=== PATIENT | female | born 1955 | race Two or more races ===

== ENCOUNTER 2021-01-11 14:16 | Inpatient (IN) | payer MEDICARE ==
[~2021-01-11] VITALS: Ht 167.6 cm; Wt 88.9 kg
[2021-01-11] MEDS ORDERED: SODIUM CHLORIDE 0.9% 1000ML BAG (SEPSIS BOLUS) IV ONE (14:45)
[2021-01-11 15:22] LABS: BASOPHILS % 0.9 % (0.0-2.0); EOSINOPHILS % 0.9 % (0.0-5.0); HEMOGLOBIN. 12.7 g/dL (12.0-16.0); LYMPHOCYTES % 16.9 % (20.0-50.0); MEAN CORPUSCULAR HEMOGLOBIN 29.2 pg (28.0-32.0); MONOCYTES % 14.2 % (2.0-8.0); NEUTROPHILS % 67.1 % (40.0-76.0); PLATELET 191 x1000/uL (130-400); RED BLOOD CELL COUNT 4.35 mill/uL (4.2-5.4)
[2021-01-11 15:27] LABS: CHLORIDE 111 mEq/L (98-107)
[2021-01-11 15:33] LABS: C REACTIVE PROTEIN QUANT 1.2 mg/L (0.0-3.0)
[2021-01-11 16:03] LABS: INR 8.9
[2021-01-11] MEDS ORDERED: CLONIDINE 0.1MG TABLET PO PRN (18:15)
[2021-01-11] MEDS ORDERED: ACETAMINOPHEN 325MG TABLET PO PRN ×2 (18:15)
[2021-01-11] MEDS ORDERED: NITROGLYCERIN 0.4MG TABLET SL SL PRN (18:15)
[2021-01-11] MEDS ORDERED: POTASSIUM CHLORIDE 20MEQ TABLET SR PO NR (18:15)
[2021-01-11] MEDS ORDERED: MAGNESIUM/ALUMINUM HYDROXIDE/SIMETHICONE 30ML UDC PO PRN (18:15)
[2021-01-11] MEDS ORDERED: DOCUSATE SODIUM 100MG CAPSULE PO PRN (18:15)
[2021-01-11] MEDS ORDERED: GUAIFENESIN 200MG/10ML SUGAR FREE UDC PO PRN (18:15)
[2021-01-11] MEDS ORDERED: ONDANSETRON HCL 4MG/2ML INJ IV PRN (18:15)
[2021-01-11] MEDS ORDERED: IPRATROPIUM/ALBUTEROL 0.5-3(2.5)MG/3ML NEB NEB PRN (18:15)
[2021-01-11] MEDS: FAMOTIDINE 20MG TABLET PO SCH (18:59)
[2021-01-11 20:10] LABS: ETHANOL BLOOD < 10 mg/dL
[2021-01-11 20:12] LABS: TOTAL IRON BINDING CAPACITY 253 ug/dL (250-450)
[2021-01-11 20:14] LABS: LDL CHOLESTEROL 80 mg/dL (5-100)
[2021-01-11 20:15] LABS: HDL CHOLESTEROL 44 mg/dL (40-59); T4 FREE 2.02 ng/dL (0.76-1.46)
[2021-01-11 20:23] LABS: FOLIC ACID (FOLATE) SERUM 19.7 ng/mL (>5.38)
[2021-01-11] MEDS ORDERED: DEXTROSE 50% WATER 50ML SYRINGE IV PRN (20:45)
[2021-01-11] MEDS: BLOOD SUGAR DIAGNOSTIC STRIP TEST SCH (21:00)
[2021-01-11] MEDS: INSULIN LISPRO 100 UNITS/ML SUBCUT SCH (21:00)
[2021-01-11] MEDS ORDERED: PHYTONADIONE 10MG/ML AMP SUBCUT NR (21:00)
[2021-01-12] VITALS (7 sets, daily range): BP systolic 127–157; BP diastolic 68–91
[2021-01-12] MEDS: ASCORBIC ACID 500 MG TABLET PO SCH ×3 (02:00→22:22)
[2021-01-12 05:28] LABS: CLARITY URINE CLEAR (CLEAR); COLOR URINE YELLOW (YELLOW); KETONES URINE NEGATIVE (NEGATIVE); LEUKOCYTE ESTERASE URINE NEGATIVE (NEGATIVE); NITRITE URINE NEGATIVE (NEGATIVE); OCCULT BLOOD URINE NEGATIVE (NEGATIVE); PROTEIN URINE NEGATIVE (NEGATIVE); UROBILINOGEN URINE 0.2 E.U./dL (0.2-1.0)
[2021-01-12 05:43] LABS: *AMPHETAMINES SCREEN URINE NEGATIVE (NEGATIVE); *BARBITURATES SCREEN URINE NEGATIVE (NEGATIVE); *BENZODIAZEPINES SCREEN URINE NEGATIVE (NEGATIVE); *COCAINE SCREEN URINE NEGATIVE (NEGATIVE); METHADONE URINE SCREEN NEGATIVE (NEGATIVE); OPIATES URINE SCREEN NEGATIVE (NEGATIVE)
[2021-01-12 05:44] LABS: CANNABINOID URINE SCREEN NEGATIVE (NEGATIVE); PHENCYCLIDINE URINE SCREEN NEGATIVE (NEGATIVE)
[2021-01-12] MEDS: BLOOD SUGAR DIAGNOSTIC STRIP TEST SCH ×4 (06:33→21:00)
[2021-01-12] MEDS: INSULIN LISPRO 100 UNITS/ML SUBCUT SCH ×4 (06:33→21:00)
[2021-01-12 07:51] LABS: CHLORIDE 112 mEq/L (98-107)
[2021-01-12 07:56] LABS: PROTHROMBIN TIME 86.2 sec (9.6-11.0)
[2021-01-12 07:58] LABS: PHOSPHORUS 2.8 mg/dL (2.5-4.9)
[2021-01-12 08:00] LABS: CREATINE KINASE 204 IU/L (26-192); CREATINE KINASE MB FRACTION 6.5 ng/mL (0.5-3.6)
[2021-01-12 08:24] LABS: INR 9.6
[2021-01-12] MEDS: ASPIRIN 81MG EC TABLET PO SCH (09:07)
[2021-01-12] MEDS: FAMOTIDINE 20MG TABLET PO SCH (09:08)
[2021-01-12] MEDS: CHOLECALCIFEROL (D3) 1000 UNIT TABLET PO SCH (09:08)
[2021-01-12] MEDS: ZINC SULFATE 220 MG ( 50 ) CAPSULE PO SCH (09:08)
[2021-01-12] MEDS ORDERED: PHYTONADIONE 5 MG/5ML ORAL SYRINGE PO NR (11:00)
[2021-01-12 17:28] LABS: HEMOGLOBIN. 12.9 g/dL (12.0-16.0); MEAN CORPUSCULAR HEMOGLOBIN 28.6 pg (28.0-32.0); MEAN CORPUSCULAR VOLUME 86.5 fL (81.0-99.0); MEAN PLATELET VOLUME 9.4 fl (7.4-10.4); PLATELET 202 x1000/uL (130-400); RED CELL DISTRIBUTION WIDTH 17.3 % (11.6-14.6)
[2021-01-12 17:52] LABS: CREATINE KINASE MB FRACTION 6.1 ng/mL (0.5-3.6)
[2021-01-12 18:14] LABS: PLATELET ESTIMATE NORMAL
[2021-01-13] VITALS: BP 142/74
[2021-01-13 04:18] VITALS: BP 146/73
[2021-01-13] MEDS: BLOOD SUGAR DIAGNOSTIC STRIP TEST SCH ×4 (06:18→21:00)
[2021-01-13] MEDS: INSULIN LISPRO 100 UNITS/ML SUBCUT SCH ×4 (06:19→21:00)
[2021-01-13 06:22] LABS: PROTHROMBIN TIME 20.8 sec (9.6-11.0)
[2021-01-13 08:00] VITALS: BP 158/86
[2021-01-13] MEDS: FAMOTIDINE 20MG TABLET PO SCH (08:52)
[2021-01-13] MEDS: ASPIRIN 81MG EC TABLET PO SCH (08:52)
[2021-01-13] MEDS: CHOLECALCIFEROL (D3) 1000 UNIT TABLET PO SCH (08:52)
[2021-01-13] MEDS: ZINC SULFATE 220 MG ( 50 ) CAPSULE PO SCH (08:52)
[2021-01-13] MEDS: ASCORBIC ACID 500 MG TABLET PO SCH ×2 (08:52→22:32)
[2021-01-13 12:00] VITALS: BP 155/84
[2021-01-13] MEDS ORDERED: DILTIAZEM HCL 5MG/ML 5ML VIAL IV SCH (13:45)
[2021-01-13 16:00] VITALS: BP 101/72
[2021-01-13] MEDS: DILTIAZEM HCL 60MG TABLET PO SCH ×2 (17:30→17:56)
[2021-01-13] MEDS ORDERED: DILTIAZEM HCL 60MG TABLET PO SCH (18:00)
[2021-01-13] MEDS ORDERED: WARFARIN SODIUM 2.5MG TABLET PO NR (18:00)
[2021-01-13] MEDS: ZOLPIDEM TARTRATE 5MG TABLET PO PRN (18:39)
[2021-01-13 20:00] VITALS: BP 129/63
[2021-01-14] VITALS: BP 147/75
[2021-01-14] MEDS: DILTIAZEM HCL 60MG TABLET PO SCH ×3 (00:23→12:49)
[2021-01-14 04:00] VITALS: BP 159/79
[2021-01-14] MEDS: BLOOD SUGAR DIAGNOSTIC STRIP TEST SCH ×4 (06:14→21:56)
[2021-01-14] MEDS: INSULIN LISPRO 100 UNITS/ML SUBCUT SCH ×4 (06:24→21:57)
[2021-01-14 08:00] VITALS: BP 114/73
[2021-01-14] MEDS: ZINC SULFATE 220 MG ( 50 ) CAPSULE PO SCH (09:21)
[2021-01-14] MEDS: ASPIRIN 81MG EC TABLET PO SCH (09:21)
[2021-01-14] MEDS: CHOLECALCIFEROL (D3) 1000 UNIT TABLET PO SCH (09:21)
[2021-01-14] MEDS: ASCORBIC ACID 500 MG TABLET PO SCH ×2 (09:21→21:56)
[2021-01-14] MEDS: FAMOTIDINE 20MG TABLET PO SCH (09:21)
[2021-01-14 12:00] VITALS: BP 178/93
[2021-01-14 16:00] VITALS: BP 121/79
[2021-01-14 16:10] LABS: INR 1.3; PROTHROMBIN TIME 13.3 sec (9.6-11.0)
[2021-01-14] MEDS ORDERED: DIGOXIN 500MCG/2ML AMP IV NR (16:30)
[2021-01-14] MEDS ORDERED: WARFARIN SODIUM 5MG TABLET PO NR (18:00)
[2021-01-14] MEDS: DILTIAZEM HCL 90MG TABLET PO SCH (18:11)
[2021-01-14 20:00] VITALS: BP 135/75
[2021-01-15] VITALS: BP 172/92
[2021-01-15] MEDS: DILTIAZEM HCL 90MG TABLET PO SCH ×4 (00:51→17:19)
[2021-01-15] MEDS: ZOLPIDEM TARTRATE 5MG TABLET PO PRN (01:45)
[2021-01-15 04:00] VITALS: BP 145/79
[2021-01-15] MEDS: BLOOD SUGAR DIAGNOSTIC STRIP TEST SCH ×4 (06:51→21:00)
[2021-01-15] MEDS: INSULIN LISPRO 100 UNITS/ML SUBCUT SCH ×4 (06:53→23:52)
[2021-01-15 08:00] VITALS: BP 139/66
[2021-01-15 08:04] LABS: INR 1.2; PROTHROMBIN TIME 12.6 sec (9.6-11.0)
[2021-01-15] MEDS: ZINC SULFATE 220 MG ( 50 ) CAPSULE PO SCH (09:26)
[2021-01-15] MEDS: ASPIRIN 81MG EC TABLET PO SCH (09:26)
[2021-01-15] MEDS: FAMOTIDINE 20MG TABLET PO SCH (09:26)
[2021-01-15] MEDS: CHOLECALCIFEROL (D3) 1000 UNIT TABLET PO SCH (09:26)
[2021-01-15] MEDS: ASCORBIC ACID 500 MG TABLET PO SCH ×2 (09:26→23:01)
[2021-01-15] MEDS: AMIODARONE HCL 200 MG TABLET PO SCH ×2 (11:56→23:01)
[2021-01-15 12:00] VITALS: BP 149/89
[2021-01-15 16:00] VITALS: BP 128/57
[2021-01-15] MEDS ORDERED: WARFARIN SODIUM 5MG TABLET PO NR (18:00)
[2021-01-15 20:00] VITALS: BP 137/85
[2021-01-16] VITALS: BP 166/85
[2021-01-16] MEDS: DILTIAZEM HCL 90MG TABLET PO SCH ×3 (01:01→12:21)
[2021-01-16] MEDS: BLOOD SUGAR DIAGNOSTIC STRIP TEST SCH ×2 (06:40→11:56)
[2021-01-16] MEDS: INSULIN LISPRO 100 UNITS/ML SUBCUT SCH ×2 (07:10→12:23)
[2021-01-16] MEDS: CHOLECALCIFEROL (D3) 1000 UNIT TABLET PO SCH (09:23)
[2021-01-16] MEDS: FAMOTIDINE 20MG TABLET PO SCH (09:23)
[2021-01-16] MEDS: ZINC SULFATE 220 MG ( 50 ) CAPSULE PO SCH (09:23)
[2021-01-16] MEDS: ASCORBIC ACID 500 MG TABLET PO SCH (09:23)
[2021-01-16] MEDS: AMIODARONE HCL 200 MG TABLET PO SCH (09:30)
[2021-01-16] MEDS ORDERED: APIXABAN 5 MG TABLET PO SCH ×2 (10:00→18:00)
[2021-01-16] MEDS: ASPIRIN 81MG EC TABLET PO SCH (10:52)
[2021-01-16 12:00] VITALS: BP 172/69
[2021-01-16 14:10] VITALS: BP 146/70
== END 2021-01-16 15:15 | disposition home or self-care (01) | DRG 91 ==
LOC: ER 14:16 → EDBEDREQ 16:50 → EDBEDREQSVC 16:50 → EDBEDREQTM 16:50 → MICUSO 17:39 → EDBEDREQTM 17:44 → EDBEDREQ 17:44 → 7WST 21:12 → 7EST 23:40
PROVIDERS: ADMIT Internal Medicine; ATTEND Internal Medicine
DX: G92 Toxic encephalopathy (principal); I50.33 Acute on chronic diastolic (congestive) heart failure; E43 Unspecified severe protein-calorie malnutrition; D68.9 Coagulation defect, unspecified; I48.19 Other persistent atrial fibrillation; N17.9 Acute kidney failure, unspecified; I95.9 Hypotension, unspecified; I11.0 Hypertensive heart disease with heart failure; E66.9 Obesity, unspecified; E78.00 Pure hypercholesterolemia, unspecified; E83.51 Hypocalcemia; E87.6 Hypokalemia; S91.012A Laceration without foreign body, left ankle, initial encounter; E11.9 Type 2 diabetes mellitus without complications; Z78.9 Other specified health status; Z79.01 Long term (current) use of anticoagulants; Z85.72 Personal history of non-Hodgkin lymphomas; Z86.73 Personal history of transient ischemic attack (TIA), and cerebral infarction without residual deficits; X58.XXXA Exposure to other specified factors, initial encounter; Y93.89 Activity, other specified; Y92.89 Other specified places as the place of occurrence of the external cause; Y99.8 Other external cause status; Z68.31 Body mass index [BMI] 31.0-31.9, adult; Z20.822 Contact with and (suspected) exposure to COVID-19
CPT/HCPCS: 36415; 70551; 71045; 80053; 80061; 80305; 80320; 81003; 82140; 82550; 82553; 82607; 82728; 82746; 82962; 83036; 83540; 83550; 83605; 83615; 83735; 84100; 84145; 84439; 84443; 84484; 85025; 85379; 85384; 86140; 86850; 86900; 87426; 93005; 93306; 93970; 97162; 99285; J1160; J1815; J3430; J3490; J7030; U0003; U0005; G0480

== ENCOUNTER 2021-02-17 18:08 | Inpatient (IN) | payer MEDICARE, MEDICAID ==
[~2021-02-17] VITALS: Ht 162.6 cm; Wt 89.4 kg
[2021-02-17] MEDS ORDERED: SODIUM CHLORIDE 0.9% 500 ML IV ONE (19:00)
[2021-02-17 21:41] LABS: CHLORIDE 110 mEq/L (98-107)
[2021-02-17 21:42] LABS: BASOPHILS % 0.7 % (0.0-2.0); EOSINOPHILS % 1.1 % (0.0-5.0); HEMATOCRIT. 44.1 % (36.0-48.0); HEMOGLOBIN. 13.9 g/dL (12.0-16.0); LYMPHOCYTES % 16.9 % (20.0-50.0); MEAN CORPUSCULAR HEMOGLOBIN 29.1 pg (28.0-32.0); MEAN CORPUSCULAR VOLUME 92.4 fL (81.0-99.0); MONOCYTES % 10.5 % (2.0-8.0); NEUTROPHILS % 70.8 % (40.0-76.0); PLATELET 145 x1000/uL (130-400); RED BLOOD CELL COUNT 4.78 mill/uL (4.2-5.4); RED CELL DISTRIBUTION WIDTH 18.5 % (11.6-14.6)
[2021-02-17] MEDS ORDERED: ASPIRIN 81MG TABLET PO NR (22:00)
[2021-02-18] VITALS (10 sets, daily range): BP systolic 118–177; BP diastolic 61–100
[2021-02-18] MEDS ORDERED: DEXTROSE 50% WATER 50ML SYRINGE IV PRN (05:15)
[2021-02-18] MEDS: BLOOD SUGAR DIAGNOSTIC STRIP TEST SCH ×4 (07:30→20:23)
[2021-02-18] MEDS ORDERED: PNEUMOCOCCAL 23-VAL P-SAC VAC 0.5 ML IM ONE (08:00)
[2021-02-18] MEDS: INSULIN LISPRO 100 UNITS/ML SUBCUT SCH ×4 (09:41→20:31)
[2021-02-18 09:57] LABS: CREATINE KINASE MB FRACTION 5.3 ng/mL (0.5-3.6)
[2021-02-18] MEDS ORDERED: INFLUENZA VACCINE 05/PF 0.5 ML SYRINGE IM ONE (10:00)
[2021-02-18] MEDS: ASPIRIN 81MG TABLET PO SCH (10:29)
[2021-02-18] MEDS ORDERED: IPRATROPIUM/ALBUTEROL 0.5-3(2.5)MG/3ML NEB HHN PRN (13:30)
[2021-02-18] MEDS ORDERED: ACETAMINOPHEN 325MG TABLET PO PRN (13:30)
[2021-02-18] MEDS ORDERED: DOCUSATE SODIUM 100MG CAPSULE PO PRN (13:30)
[2021-02-18] MEDS ORDERED: ONDANSETRON HCL 4MG/2ML INJ IV PRN (13:30)
[2021-02-18 13:49] LABS: BG CARBOXYHEMOGLOBIN 0.6 % (0.5-1.5); BG DEOXYHEMOGLOBIN 2.2 % (0.0-5.0); BG FRACTION INSPIRED OXYGEN 21; BG HCO3 ACT 27.1 mmol/L (22.0-26.0); BG METHEMOGLOBIN 0.3 % (0.0-1.5); BG OXYGEN SATURATION 97.8 % (92.0-98.5); BG OXYHEMOGLOBIN 96.9 % (94.0-97.0); BG PCO2 35.5 mmHg (35.0-45.0); BG PO2 100.5 mmHg (75.0-100.0); BG SAMPLE SITE LEFT BRACHIAL; BG VENT MODE ROOM AIR
[2021-02-18] MEDS: SODIUM CHLORIDE 0.45% 1,000 ML IV SCH (14:05)
[2021-02-18 16:20] LABS: T4 FREE 1.45 ng/dL (0.76-1.46)
[2021-02-18 16:30] LABS: HEPATITIS B SURFACE ANTIGEN NEGATIVE
[2021-02-18] MEDS: CLONIDINE 0.1MG TABLET PO PRN (17:21)
[2021-02-18] MEDS ORDERED: LORAZEPAM 2MG/ML CPJ IV NR (18:30)
[2021-02-18 21:43] LABS: INR 1.1; PROTHROMBIN TIME 11.9 sec (9.6-11.0)
[2021-02-19] VITALS (9 sets, daily range): BP systolic 128–193; BP diastolic 62–100
[2021-02-19 05:28] LABS: HEMATOCRIT. 36.4 % (36.0-48.0); HEMOGLOBIN. 12.2 g/dL (12.0-16.0); MEAN CORPUSCULAR HEMOGLOBIN 29.3 pg (28.0-32.0); MEAN CORPUSCULAR VOLUME 87.5 fL (81.0-99.0); MEAN PLATELET VOLUME 10.1 fl (7.4-10.4); PLATELET 147 x1000/uL (130-400); RED BLOOD CELL COUNT 4.16 mill/uL (4.2-5.4); RED CELL DISTRIBUTION WIDTH 17.9 % (11.6-14.6)
[2021-02-19] MEDS: SODIUM CHLORIDE 0.45% 1,000 ML IV SCH ×3 (06:15→21:40)
[2021-02-19] MEDS: BLOOD SUGAR DIAGNOSTIC STRIP TEST SCH ×4 (07:30→21:15)
[2021-02-19] MEDS: INSULIN LISPRO 100 UNITS/ML SUBCUT SCH ×4 (08:00→21:00)
[2021-02-19 08:31] LABS: PLATELET ESTIMATE NORMAL
[2021-02-19] MEDS: CLONIDINE 0.1MG TABLET PO PRN (08:50)
[2021-02-19] MEDS: ASPIRIN 81MG TABLET PO SCH (08:50)
[2021-02-19] MEDS: ACETAMINOPHEN 325MG TABLET PO PRN ×2 (08:51→17:54)
[2021-02-19] MEDS ORDERED: POTASSIUM CHLORIDE 20MEQ TABLET SR PO SCH (09:00)
[2021-02-19] MEDS ORDERED: LORAZEPAM 2MG/ML CPJ IV PRN (09:15)
[2021-02-19] MEDS: AMLODIPINE 5MG TABLET PO SCH (09:31)
[2021-02-19] MEDS: HYDRALAZINE 20MG/ML VIAL IV PRN (09:31)
[2021-02-19 11:57] LABS: CREATINE KINASE 327 IU/L (26-192)
[2021-02-19] MEDS: HYDRALAZINE HCL 25MG TABLET PO SCH ×2 (17:44→22:48)
[2021-02-19] MEDS: ENOXAPARIN 80MG/0.8ML SYR SUBCUT SCH (17:45)
[2021-02-20] VITALS (8 sets, daily range): BP systolic 110–189; BP diastolic 56–110
[2021-02-20] MEDS: ENOXAPARIN 80MG/0.8ML SYR SUBCUT SCH ×2 (05:26→18:39)
[2021-02-20] MEDS: HYDRALAZINE HCL 25MG TABLET PO SCH ×3 (05:27→22:00)
[2021-02-20] MEDS: SODIUM CHLORIDE 0.45% 1,000 ML IV SCH ×2 (05:28→18:40)
[2021-02-20] MEDS: BLOOD SUGAR DIAGNOSTIC STRIP TEST SCH ×4 (07:30→20:23)
[2021-02-20] MEDS: INSULIN LISPRO 100 UNITS/ML SUBCUT SCH ×4 (08:00→20:44)
[2021-02-20 08:14] LABS: HEMATOCRIT. 37.1 % (36.0-48.0); HEMOGLOBIN. 12.3 g/dL (12.0-16.0); MEAN CORPUSCULAR HEMOGLOBIN 29.2 pg (28.0-32.0); MEAN CORPUSCULAR VOLUME 88.3 fL (81.0-99.0); MEAN PLATELET VOLUME 9.8 fl (7.4-10.4); PLATELET 169 x1000/uL (130-400); RED CELL DISTRIBUTION WIDTH 17.9 % (11.6-14.6)
[2021-02-20 09:07] LABS: VITAMIN B12 SERUM 625 pg/mL (211-911)
[2021-02-20] MEDS: AMLODIPINE 5MG TABLET PO SCH (09:22)
[2021-02-20] MEDS: ASPIRIN 81MG TABLET PO SCH (09:22)
[2021-02-20] MEDS ORDERED: POTASSIUM CHLORIDE INJ 40 MEQ in DEXT 5% WATER 250 ML IV ONE (12:30)
[2021-02-20 18:03] LABS: PLATELET ESTIMATE NORMAL
[2021-02-21] VITALS (8 sets, daily range): BP systolic 104–173; BP diastolic 55–100
[2021-02-21] MEDS: SODIUM CHLORIDE 0.45% 1,000 ML IV SCH ×3 (05:00→21:54)
[2021-02-21] MEDS: HYDRALAZINE 20MG/ML VIAL IV PRN ×2 (05:15→21:39)
[2021-02-21] MEDS: HYDRALAZINE HCL 25MG TABLET PO SCH ×3 (05:15→21:54)
[2021-02-21] MEDS: ENOXAPARIN 80MG/0.8ML SYR SUBCUT SCH (05:17)
[2021-02-21] MEDS: BLOOD SUGAR DIAGNOSTIC STRIP TEST SCH ×4 (07:30→21:54)
[2021-02-21] MEDS: INSULIN LISPRO 100 UNITS/ML SUBCUT SCH ×4 (08:00→21:00)
[2021-02-21] MEDS: AMLODIPINE 5MG TABLET PO SCH (08:52)
[2021-02-21] MEDS: ASPIRIN 81MG TABLET PO SCH (08:52)
[2021-02-21 09:12] LABS: BASOPHILS % 1.2 % (0.0-2.0); EOSINOPHILS % 2.3 % (0.0-5.0); HEMATOCRIT. 41.1 % (36.0-48.0); HEMOGLOBIN. 13.1 g/dL (12.0-16.0); LYMPHOCYTES % 23.8 % (20.0-50.0); MEAN CORPUSCULAR HEMOGLOBIN 28.9 pg (28.0-32.0); MEAN CORPUSCULAR VOLUME 90.2 fL (81.0-99.0); MEAN PLATELET VOLUME 9.9 fl (7.4-10.4); MONOCYTES % 13.9 % (2.0-8.0); NEUTROPHILS % 58.8 % (40.0-76.0); PLATELET 162 x1000/uL (130-400); RED BLOOD CELL COUNT 4.55 mill/uL (4.2-5.4); RED CELL DISTRIBUTION WIDTH 17.7 % (11.6-14.6)
[2021-02-21 09:24] LABS: PHOSPHORUS 2.6 mg/dL (2.5-4.9)
[2021-02-21] MEDS ORDERED: POTASSIUM CHLORIDE 20MEQ/PACKET PO NR (10:30)
[2021-02-21] MEDS: ENOXAPARIN 100MG/ML SYR SUBCUT SCH (21:38)
[2021-02-22] VITALS (8 sets, daily range): BP systolic 119–171; BP diastolic 64–98
[2021-02-22] MEDS: HYDRALAZINE HCL 25MG TABLET PO SCH ×3 (05:44→22:38)
[2021-02-22] MEDS: HYDRALAZINE 20MG/ML VIAL IV PRN ×2 (06:38→13:03)
[2021-02-22] MEDS: BLOOD SUGAR DIAGNOSTIC STRIP TEST SCH ×4 (07:30→21:15)
[2021-02-22] MEDS: INSULIN LISPRO 100 UNITS/ML SUBCUT SCH ×4 (08:00→21:00)
[2021-02-22] MEDS: AMLODIPINE 5MG TABLET PO SCH (09:19)
[2021-02-22] MEDS: ENOXAPARIN 100MG/ML SYR SUBCUT SCH ×2 (09:19→21:15)
[2021-02-22] MEDS: ASPIRIN 81MG TABLET PO SCH (09:19)
[2021-02-22] MEDS: SODIUM CHLORIDE 0.45% 1,000 ML IV SCH (09:32)
[2021-02-22 09:34] LABS: BASOPHILS % 0.9 % (0.0-2.0); EOSINOPHILS % 2.1 % (0.0-5.0); HEMOGLOBIN. 12.7 g/dL (12.0-16.0); LYMPHOCYTES % 19.2 % (20.0-50.0); MEAN CORPUSCULAR HEMOGLOBIN 29.9 pg (28.0-32.0); MEAN CORPUSCULAR VOLUME 89.6 fL (81.0-99.0); MEAN PLATELET VOLUME 9.7 fl (7.4-10.4); MONOCYTES % 12.6 % (2.0-8.0); NEUTROPHILS % 65.2 % (40.0-76.0); PLATELET 164 x1000/uL (130-400); RED BLOOD CELL COUNT 4.24 mill/uL (4.2-5.4); RED CELL DISTRIBUTION WIDTH 17.7 % (11.6-14.6)
[2021-02-22 09:44] LABS: PHOSPHORUS 2.9 mg/dL (2.5-4.9)
[2021-02-22] MEDS ORDERED: POTASSIUM CHLORIDE 20MEQ/PACKET PO NR (11:00)
[2021-02-23] VITALS: BP 150/84
[2021-02-23 04:00] VITALS: BP 166/81
[2021-02-23] MEDS: HYDRALAZINE HCL 25MG TABLET PO SCH ×3 (06:32→22:03)
[2021-02-23] MEDS: BLOOD SUGAR DIAGNOSTIC STRIP TEST SCH ×4 (07:30→21:00)
[2021-02-23 08:00] VITALS: BP 143/58
[2021-02-23] MEDS: INSULIN LISPRO 100 UNITS/ML SUBCUT SCH ×4 (08:00→21:00)
[2021-02-23 08:07] LABS: BASOPHILS % 0.7 % (0.0-2.0); EOSINOPHILS % 2.1 % (0.0-5.0); HEMATOCRIT. 38.3 % (36.0-48.0); HEMOGLOBIN. 12.5 g/dL (12.0-16.0); LYMPHOCYTES % 18.8 % (20.0-50.0); MEAN CORPUSCULAR HEMOGLOBIN 28.9 pg (28.0-32.0); MEAN CORPUSCULAR VOLUME 88.3 fL (81.0-99.0); MEAN PLATELET VOLUME 9.9 fl (7.4-10.4); MONOCYTES % 13.3 % (2.0-8.0); NEUTROPHILS % 65.1 % (40.0-76.0); PLATELET 176 x1000/uL (130-400); RED BLOOD CELL COUNT 4.34 mill/uL (4.2-5.4); RED CELL DISTRIBUTION WIDTH 17.1 % (11.6-14.6)
[2021-02-23] MEDS: ASPIRIN 81MG TABLET PO SCH (08:44)
[2021-02-23] MEDS: ENOXAPARIN 100MG/ML SYR SUBCUT SCH ×2 (08:44→21:00)
[2021-02-23] MEDS: AMLODIPINE 5MG TABLET PO SCH (08:45)
[2021-02-23] MEDS ORDERED: POTASSIUM CHLORIDE 20MEQ/PACKET PO NR (11:15)
[2021-02-23 12:00] VITALS: BP 101/75
[2021-02-23 16:00] VITALS: BP 133/78
[2021-02-23] MEDS: HYDRALAZINE 20MG/ML VIAL IV PRN (16:23)
[2021-02-23] MEDS: DEXT 5%/0.9% NACL 1,000 ML IV SCH ×2 (19:01→19:05)
[2021-02-23 20:00] VITALS: BP 101/42
[2021-02-23] MEDS: MEMANTINE HCL 5MG TABLET PO SCH (22:04)
[2021-02-24] VITALS (8 sets, daily range): BP systolic 116–161; BP diastolic 52–98
[2021-02-24] MEDS: HYDRALAZINE HCL 25MG TABLET PO SCH ×2 (06:47→15:42)
[2021-02-24] MEDS: BLOOD SUGAR DIAGNOSTIC STRIP TEST SCH ×4 (07:30→21:00)
[2021-02-24] MEDS: INSULIN LISPRO 100 UNITS/ML SUBCUT SCH ×4 (08:00→21:00)
[2021-02-24] MEDS: ASPIRIN 81MG TABLET PO SCH (10:16)
[2021-02-24] MEDS: MEMANTINE HCL 5MG TABLET PO SCH ×2 (10:16→22:39)
[2021-02-24] MEDS: AMLODIPINE 5MG TABLET PO SCH (10:17)
[2021-02-24] MEDS: ENOXAPARIN 100MG/ML SYR SUBCUT SCH ×2 (10:18→22:41)
[2021-02-24 12:16] LABS: BASOPHILS % 0.5 % (0.0-2.0); HEMATOCRIT. 38.6 % (36.0-48.0); HEMOGLOBIN. 13.1 g/dL (12.0-16.0); LYMPHOCYTES % 16.8 % (20.0-50.0); MEAN CORPUSCULAR HEMOGLOBIN 30.3 pg (28.0-32.0); MEAN PLATELET VOLUME 9.6 fl (7.4-10.4); MONOCYTES % 12.9 % (2.0-8.0); NEUTROPHILS % 68.8 % (40.0-76.0); PLATELET 183 x1000/uL (130-400); RED BLOOD CELL COUNT 4.34 mill/uL (4.2-5.4); RED CELL DISTRIBUTION WIDTH 17.3 % (11.6-14.6)
[2021-02-24 12:31] LABS: PHOSPHORUS 3.3 mg/dL (2.5-4.9)
[2021-02-24] MEDS ORDERED: DILTIAZEM HCL 5MG/ML 5ML VIAL IV PRN ×2 (16:30→19:00)
[2021-02-24] MEDS ORDERED: DILTIAZEM HCL 5MG/ML 5ML VIAL IV NR (16:30)
[2021-02-24] MEDS: DILTIAZEM HCL 60MG TABLET PO SCH ×2 (16:32→22:39)
[2021-02-25] VITALS: BP 160/90
[2021-02-25 03:40] VITALS: BP 144/73
[2021-02-25] MEDS: DILTIAZEM HCL 60MG TABLET PO SCH (06:34)
[2021-02-25 08:00] VITALS: BP 163/94
[2021-02-25] MEDS: INSULIN LISPRO 100 UNITS/ML SUBCUT SCH ×4 (08:00→21:00)
[2021-02-25] MEDS: BLOOD SUGAR DIAGNOSTIC STRIP TEST SCH ×4 (08:11→21:00)
[2021-02-25 08:30] LABS: BASOPHILS % 0.8 % (0.0-2.0); EOSINOPHILS % 2.2 % (0.0-5.0); HEMATOCRIT. 36.9 % (36.0-48.0); HEMOGLOBIN. 12.3 g/dL (12.0-16.0); LYMPHOCYTES % 18.1 % (20.0-50.0); MEAN CORPUSCULAR HEMOGLOBIN 29.6 pg (28.0-32.0); MEAN CORPUSCULAR VOLUME 88.7 fL (81.0-99.0); MEAN PLATELET VOLUME 10.4 fl (7.4-10.4); NEUTROPHILS % 64.9 % (40.0-76.0); PLATELET 170 x1000/uL (130-400); RED BLOOD CELL COUNT 4.16 mill/uL (4.2-5.4); RED CELL DISTRIBUTION WIDTH 17.1 % (11.6-14.6)
[2021-02-25] MEDS: MEMANTINE HCL 5MG TABLET PO SCH ×2 (09:11→22:25)
[2021-02-25] MEDS: ASPIRIN 81MG TABLET PO SCH (09:11)
[2021-02-25] MEDS: ENOXAPARIN 100MG/ML SYR SUBCUT SCH ×2 (09:11→22:26)
[2021-02-25] MEDS: AMLODIPINE 5MG TABLET PO SCH (09:11)
[2021-02-25 12:00] VITALS: BP 143/85
[2021-02-25] MEDS ORDERED: POTASSIUM CHLORIDE 20MEQ TABLET SR PO NR (12:15)
[2021-02-25] MEDS: SODIUM CHLORIDE 0.45% 1,000 ML IV SCH (13:19)
[2021-02-25] MEDS: DILTIAZEM HCL 90MG TABLET PO SCH ×2 (14:21→22:42)
[2021-02-25] MEDS ORDERED: ASPI-1160 PO (14:30)
[2021-02-25] MEDS ORDERED: DILT90TA2 PO (14:30)
[2021-02-25] MEDS ORDERED: AMLO5TAB88 PO (14:30)
[2021-02-25] MEDS ORDERED: MEMA5TAB7 PO (14:30)
[2021-02-25] MEDS ORDERED: APIX5TAB MT (14:30)
[2021-02-25 15:40] LABS: CLARITY URINE CLOUDY (CLEAR); COLOR URINE YELLOW (YELLOW); KETONES URINE TRACE (NEGATIVE); LEUKOCYTE ESTERASE URINE 1+ (NEGATIVE); NITRITE URINE POSITIVE (NEGATIVE); OCCULT BLOOD URINE NEGATIVE (NEGATIVE); PH URINE 5.5 (4.5-8.0); PROTEIN URINE TRACE (NEGATIVE); SPECIFIC GRAVITY URINE 1.017 (1.005-1.030)
[2021-02-25 17:21] VITALS: BP 143/85
[2021-02-26] VITALS: BP 153/89
[2021-02-26 02:00] VITALS: BP 134/77
[2021-02-26 04:00] VITALS: BP 129/67
[2021-02-26] MEDS: DILTIAZEM HCL 90MG TABLET PO SCH ×2 (06:07→13:43)
[2021-02-26] MEDS: BLOOD SUGAR DIAGNOSTIC STRIP TEST SCH ×4 (07:30→21:00)
[2021-02-26 08:00] VITALS: BP 140/87
[2021-02-26] MEDS: INSULIN LISPRO 100 UNITS/ML SUBCUT SCH ×4 (08:00→21:00)
[2021-02-26] MEDS: MEMANTINE HCL 5MG TABLET PO SCH ×2 (08:38→21:00)
[2021-02-26] MEDS: ASPIRIN 81MG TABLET PO SCH (08:38)
[2021-02-26] MEDS: AMLODIPINE 5MG TABLET PO SCH (08:38)
[2021-02-26] MEDS: ENOXAPARIN 100MG/ML SYR SUBCUT SCH ×2 (08:39→21:00)
[2021-02-26] MEDS: SODIUM CHLORIDE 0.45% 1,000 ML IV SCH (11:09)
[2021-02-26 12:01] VITALS: BP 133/87
[2021-02-26 16:21] VITALS: BP 148/77
[2021-02-26] MEDS ORDERED: LORAZEPAM 2MG/ML CPJ IV NR (19:00)
== END 2021-02-26 22:17 | DRG 91 ==
LOC: ER 18:08 → 5EST 23:48
PROVIDERS: ADMIT Internal Medicine; ATTEND Internal Medicine
PROC: 4A00X4Z Measurement of Central Nervous Electrical Activity, External Approach (ICD-10-PCS; principal; 2021-02-22)
DX: G92.8 Other toxic encephalopathy (principal); I21.A1 Myocardial infarction type 2; I48.19 Other persistent atrial fibrillation; I13.0 Hypertensive heart and chronic kidney disease with heart failure and stage 1 through stage 4 chronic kidney disease, or unspecified chronic kidney disease; E87.0 Hyperosmolality and hypernatremia; I31.3 Pericardial effusion (noninflammatory); N17.9 Acute kidney failure, unspecified; I50.32 Chronic diastolic (congestive) heart failure; I42.2 Other hypertrophic cardiomyopathy; I42.1 Obstructive hypertrophic cardiomyopathy; E78.00 Pure hypercholesterolemia, unspecified; Z20.822 Contact with and (suspected) exposure to COVID-19; E11.22 Type 2 diabetes mellitus with diabetic chronic kidney disease; E11.65 Type 2 diabetes mellitus with hyperglycemia; E66.9 Obesity, unspecified; Z68.33 Body mass index [BMI] 33.0-33.9, adult; E86.9 Volume depletion, unspecified; E78.5 Hyperlipidemia, unspecified; E87.6 Hypokalemia; F03.90 Unspecified dementia, unspecified severity, without behavioral disturbance, psychotic disturbance, mood disturbance, and anxiety; D72.821 Monocytosis (symptomatic); J44.9 Chronic obstructive pulmonary disease, unspecified; N18.9 Chronic kidney disease, unspecified; X58.XXXA Exposure to other specified factors, initial encounter; S91.012A Laceration without foreign body, left ankle, initial encounter; Z86.16 Personal history of COVID-19; Z78.1 Physical restraint status; Z79.01 Long term (current) use of anticoagulants; Z85.72 Personal history of non-Hodgkin lymphomas; Z86.73 Personal history of transient ischemic attack (TIA), and cerebral infarction without residual deficits; Y93.89 Activity, other specified; Y92.89 Other specified places as the place of occurrence of the external cause; Y99.8 Other external cause status; R74.01 Elevation of levels of liver transaminase levels; R82.81 Pyuria
CPT/HCPCS: 36415; 36600; 70551; 71045; 76770; 80048; 80053; 80061; 80076; 81003; 82140; 82375; 82550; 82553; 82607; 82805; 82962; 83036; 83735; 83880; 84100; 84145; 84439; 84443; 84481; 84484; 85025; 86705; 86709; 86803; 87340; 87426; 90686; 90732; 93005; 93306; 95816; 97110; 97162; 97166; 97530; 97535; 99285; J0360; J1650; J1815; J2060; J2405; J3480; J3490; J7030; J7042; J7060; A4315